=== PATIENT | male | born 1955 | race Caucasian/White ===

== ENCOUNTER 2016-09-10 19:44 | Emergency (ER) | payer OTHER, MEDICAID ==
[~2016-09-10] VITALS: Ht 175.3 cm; Wt 90.7 kg
[2016-09-10 21:08] LABS: Basophils # (auto) 0.1 uL; Basophils % (auto) 0.5 % (0.0-2.0); CONDITION Y; DEFINITIVE SEE PRINTOUT; Eosinophils # (auto) 0 uL; Eosinophils % (auto) 0.1 % (0.0-7.0); Hematocrit 38.4 % (41.0-53.0); Hemoglobin 12.5 g/dL (13.5-17.5); Lymphocytes # (auto) 1.3 uL; Lymphocytes % (auto) 13.2 % (10.0-50.0); Mean Corpuscular Hemoglobin 25.6 pg (28.0-32.0); Mean Corpuscular Hgb Conc. 32.5 g/dL (32.0-36.0); Mean Corpuscular Volume 78.8 fL (80.0-100.0); Mean Platelet Volume 7.5 fL (7.4-10.4); Monocytes # (auto) 1.1 uL; Monocytes % (auto) 10.8 % (0.0-12.0); Neutrophils # (auto) 7.5 uL; Neutrophils % (auto) 75.4 % (37.0-80.0); Platelet Count (auto) 387 10^3/uL (140-450)
[2016-09-10] MEDS ORDERED: LORazepam 2MG/ML-1ML VIAL ONE (21:10)
[2016-09-10] MEDS ORDERED: LORazepam 2MG/ML-1ML VIAL IV ONE (21:15)
[2016-09-10 21:25] LABS: INR 1.06 (0.9-1.15); Partial Thromboplastin Time 25.4 sec (22.64-33.71); Prothrombin Time 11.6 sec (9.37-12.3)
[2016-09-10 21:26] LABS: Red Cell Distribution Width 21.3 % (11.6-16.0)
[2016-09-10 21:53] LABS: Platelet Estimate Adequate; Stomatocytes Few
[2016-09-10 21:54] LABS: Anisocytosis Slight; Hypochromia Slight; Ovalocytes FEW; Platelet Clumps FEW; Tear Drop Cells FEW
[2016-09-10 22:24] LABS: Albumin 3.7 g/dL (3.4-5.0); Alkaline Phosphatase 92 U/L (45-117); Anion Gap 12 (5-15); Aspartate Aminotransferase 58 U/L (15-37); BUN/Creatinine Ratio 14.1; Bilirubin, Total 0.9 mg/dL (0.2-1.0); Blood Urea Nitrogen 12 mg/dL (7-18); Calcium 8.9 mg/dL (8.5-10.1); Carbon Dioxide 23 mmol/L (21-32); Chloride 107 mmol/L (98-107); GFR African American 118 mL/min; GFR Non-African American 98 mL/min; Glucose 110 mg/dL (74-106); Magnesium 2.2 mg/dL (1.6-2.6); Potassium 3.5 mmol/L (3.5-5.1); Sodium 142 mmol/L (136-145); Total Protein 7.7 g/dL (6.4-8.2)
[2016-09-10 22:36] LABS: REFLEX LACTIC ACID YES OR NO YES
[2016-09-11 05:51] VITALS: BP 154/96
[2016-09-11 06:37] LABS: Urine RBC None Seen /hpf (0 - 3)
[2016-09-11 06:52] LABS: Urine Blood Negative /uL (Negative); Urine Color Yellow (Yellow); Urine Glucose Normal (Normal); Urine Ketone TRACE (Negative); Urine Mucus MANY (None Seen); Urine Nitrite Negative (Negative); Urine pH 5.5 (5.0-8.0)
[2016-09-11 07:25] LABS: Urine Bilirubin Negative (Negative)
== END 2016-09-11 14:18 | disposition home or self-care (01) ==
LOC: ER 19:54
DX: R45.1 Restlessness and agitation (principal); R41.0 Disorientation, unspecified; R20.0 Anesthesia of skin
CPT/HCPCS: 36415; 70450; 71010; 80053; 80307; 80320; 81001; 83605; 83735; 84484; 85025; 85379; 85610; 85730; 87040; 96374; 99285; J2060

== ENCOUNTER 2017-03-08 00:30 | Inpatient (IN) | payer OTHER, MEDICAID ==
[2017-03-08] VITALS (10 sets, daily range): BP systolic 113–133; BP diastolic 59–78
[~2017-03-08] VITALS: Ht 170.2 cm; Wt 78.0 kg
[2017-03-08 06:04] LABS: Basophils # (auto) 0 uL; Eosinophils # (auto) 0.1 uL; White Blood Cell 9.9 10^3/uL (4.4-10.8)
[2017-03-08 06:07] LABS: Basophils % (auto) 0.5 % (0.0-2.0); Eosinophils % (auto) 0.9 % (0.0-7.0); Hematocrit 18.7 % (41.0-53.0); Lymphocytes # (auto) 1.5 uL; Lymphocytes % (auto) 14.7 % (10.0-50.0); Mean Corpuscular Hemoglobin 19.3 pg (28.0-32.0); Mean Corpuscular Hgb Conc. 29.8 g/dL (32.0-36.0); Mean Corpuscular Volume 64.6 fL (80.0-100.0); Monocytes # (auto) 0.9 uL; Monocytes % (auto) 9.3 % (0.0-12.0); Neutrophils # (auto) 7.4 uL; Neutrophils % (auto) 74.6 % (37.0-80.0); Nucleated Red Blood Cells % 0.1 %; Platelet Count (auto) 549 10^3/uL (140-450)
[2017-03-08 06:16] LABS: Red Cell Distribution Width 20.7 % (11.8-14.3)
[2017-03-08 06:17] LABS: Hemoglobin 5.6 g/dL (13.5-17.5)
[2017-03-08 06:24] LABS: INR 1.02 (0.9-1.15); Partial Thromboplastin Time 26.5 sec (22.64-33.71); Prothrombin Time 11.1 sec (9.37-12.3)
[2017-03-08 06:26] LABS: Alanine Aminotransferase 17 U/L (16-61); Albumin 2.5 g/dL (3.4-5.0); Anion Gap 9 (5-15); Aspartate Aminotransferase 14 U/L (15-37); BUN/Creatinine Ratio 20.7; Blood Urea Nitrogen 12 mg/dL (7-18); Calcium 7.9 mg/dL (8.5-10.1); Carbon Dioxide 27 mmol/L (21-32); Chloride 100 mmol/L (98-107); GFR African American 183 mL/min; GFR Non-African American 151 mL/min; Glucose 88 mg/dL (74-106); Potassium 3.4 mmol/L (3.5-5.1); Sodium 136 mmol/L (136-145)
[2017-03-08 06:30] LABS: Alkaline Phosphatase 81 U/L (45-117); Bilirubin, Total 0.3 mg/dL (0.2-1.0); Total Protein 7.2 g/dL (6.4-8.2)
[2017-03-08] MEDS ORDERED: IOHEXOL 300 MG/ML 100ML BOTTLE IJ ONE (09:03)
[2017-03-08] MEDS ORDERED: MORPHINE SULF INJ 2 MG/ML SYRINGE 1ML IV PRN ×2 (09:15)
[2017-03-08] MEDS ORDERED: LORazepam 0.5 MG TAB PO PRN (09:15)
[2017-03-08] MEDS ORDERED: OSELTAMIVIR 75 MG CAP PO ONE (09:15)
[2017-03-08] MEDS ORDERED: ACETAMINOPHEN 500 MG TAB PO PRN (09:15)
[2017-03-08] MEDS ORDERED: HYDROcodone-ACET 5/325MG TAB PO PRN (09:15)
[2017-03-08] MEDS ORDERED: TEMAZEPAM 15 MG CAP PO PRN (09:15)
[2017-03-08] MEDS ORDERED: ALBUTEROL SULF 2.5 MG/0.5ML(0.5%) NEB SOLN NEB PRN (09:15)
[2017-03-08] MEDS ORDERED: PROMETHAZINE HCL 25 MG/ML 1ML IV PRN (09:15)
[2017-03-08] MEDS ORDERED: NITROGLYCERIN 0.4 MG SL TAB SL PRN (09:15)
[2017-03-08] MEDS ORDERED: PANTOPRAZOLE 40 MG/10 ML VIAL IV ONE (09:15)
[2017-03-08] MEDS ORDERED: LACTULOSE 20Gm/30ML SOLN PO PRN (09:15)
[2017-03-08] MEDS ORDERED: IOHEXOL 350 MG/ML 100ML IJ ONE (09:18)
[2017-03-08] MEDS: PANTOPRAZOLE 40 MG TAB PO SCH ×2 (10:20→22:00)
[2017-03-08] MEDS: AZITHROMYCIN 500MG/ 250ML 250 ML IV SCH (10:35)
[2017-03-08] MEDS: SODIUM CHLORIDE 0.9% 1,000 ML IV SCH ×2 (12:47→18:30)
[2017-03-08 14:28] LABS: Hematocrit 16.4 % (41.0-53.0)
[2017-03-08] MEDS: IPRATROPIUM BROM 0.5 MG/2.5ML INH SOL NEB SCH (19:52)
[2017-03-08] MEDS: ALBUTEROL SULF 2.5 MG/0.5ML(0.5%) NEB SOLN NEB SCH (19:52)
[2017-03-08] MEDS: OSELTAMIVIR 75 MG CAP PO SCH (22:00)
[2017-03-08 22:46] LABS: Hematocrit 21.1 % (41.0-53.0)
[2017-03-08 23:15] LABS: Hemoglobin 6.6 g/dL (13.5-17.5)
[2017-03-09] VITALS (8 sets, daily range): BP systolic 113–132; BP diastolic 65–78
[2017-03-09] MEDS: SODIUM CHLORIDE 0.9% 1,000 ML IV SCH ×3 (02:54→18:43)
[2017-03-09 05:25] LABS: Eosinophils # (auto) 0.1 uL; Eosinophils % (auto) 0.8 % (0.0-7.0); Lymphocytes # (auto) 1.9 uL; Monocytes # (auto) 0.9 uL; Monocytes % (auto) 12.5 % (0.0-12.0); Red Blood Cells 3.47 10^6/uL (4.5-5.90)
[2017-03-09 05:29] LABS: Basophils # (auto) 0 uL; Basophils % (auto) 0.5 % (0.0-2.0); Hematocrit 23.9 % (41.0-53.0); Hemoglobin 7.8 g/dL (13.5-17.5); Lymphocytes % (auto) 27.3 % (10.0-50.0); Mean Corpuscular Hemoglobin 22.4 pg (28.0-32.0); Mean Corpuscular Hgb Conc. 32.5 g/dL (32.0-36.0); Neutrophils # (auto) 4.1 uL; Neutrophils % (auto) 58.9 % (37.0-80.0); Nucleated Red Blood Cells % 0.2 %; Platelet Count (auto) 447 10^3/uL (140-450)
[2017-03-09 05:59] LABS: Albumin 2.1 g/dL (3.4-5.0); BUN/Creatinine Ratio 18.3; Bilirubin, Total 0.7 mg/dL (0.2-1.0); Calcium 7.9 mg/dL (8.5-10.1); Potassium 3.9 mmol/L (3.5-5.1); Total Protein 6.2 g/dL (6.4-8.2)
[2017-03-09 06:00] LABS: Red Cell Distribution Width 23.7 % (11.8-14.3)
[2017-03-09] MEDS: IPRATROPIUM BROM 0.5 MG/2.5ML INH SOL NEB SCH ×3 (06:27→18:00)
[2017-03-09] MEDS: ALBUTEROL SULF 2.5 MG/0.5ML(0.5%) NEB SOLN NEB SCH ×3 (06:27→18:00)
[2017-03-09] MEDS: cefTRIAXone 1GM/10ml IVPUSH 10 ML IV SCH (09:19)
[2017-03-09] MEDS: OSELTAMIVIR 75 MG CAP PO SCH ×2 (09:35→22:00)
[2017-03-09] MEDS: PANTOPRAZOLE 40 MG TAB PO SCH ×2 (10:23→22:00)
[2017-03-09] MEDS: AZITHROMYCIN 500MG/ 250ML 250 ML IV SCH (10:23)
[2017-03-09] MEDS ORDERED: PNEUMOCOCCAL VACC POLYS 25 MCG/0.5 ML VIAL IM ONE (22:00)
[2017-03-09] MEDS ORDERED: INFLUENZA QUAD 2017-2018 0.5 ML SYRG IM ONE (22:00)
[2017-03-10] MEDS: ALBUTEROL SULF 2.5 MG/0.5ML(0.5%) NEB SOLN NEB SCH ×4 (00:08→18:27)
[2017-03-10] MEDS: IPRATROPIUM BROM 0.5 MG/2.5ML INH SOL NEB SCH ×4 (00:09→18:27)
[2017-03-10] MEDS: SODIUM CHLORIDE 0.9% 1,000 ML IV SCH ×3 (02:30→18:04)
[2017-03-10 05:00] VITALS: BP 121/71
[2017-03-10 05:45] LABS: Basophils # (auto) 0 uL; Basophils % (auto) 0.5 % (0.0-2.0); Eosinophils # (auto) 0.2 uL; Lymphocytes # (auto) 1.8 uL; Monocytes # (auto) 0.7 uL; Nucleated Red Blood Cells % 0.1 %
[2017-03-10 05:47] LABS: Eosinophils % (auto) 2.5 % (0.0-7.0); Hematocrit 25.5 % (41.0-53.0); Lymphocytes % (auto) 21.1 % (10.0-50.0); Mean Corpuscular Hemoglobin 22.1 pg (28.0-32.0); Mean Corpuscular Hgb Conc. 31.3 g/dL (32.0-36.0); Mean Corpuscular Volume 70.4 fL (80.0-100.0); Monocytes % (auto) 8.3 % (0.0-12.0); Neutrophils # (auto) 5.8 uL; Neutrophils % (auto) 67.6 % (37.0-80.0); Platelet Count (auto) 510 10^3/uL (140-450); Red Blood Cells 3.63 10^6/uL (4.5-5.90); White Blood Cell 8.5 10^3/uL (4.4-10.8)
[2017-03-10 06:01] LABS: Red Cell Distribution Width 24.2 % (11.8-14.3)
[2017-03-10 08:40] VITALS: BP 133/76
[2017-03-10] MEDS: cefTRIAXone 1GM/10ml IVPUSH 10 ML IV SCH (10:02)
[2017-03-10] MEDS: OSELTAMIVIR 75 MG CAP PO SCH ×2 (10:03→22:11)
[2017-03-10] MEDS: AZITHROMYCIN 500MG/ 250ML 250 ML IV SCH (10:03)
[2017-03-10] MEDS: PANTOPRAZOLE 40 MG TAB PO SCH ×2 (10:03→22:11)
[2017-03-10 17:06] VITALS: BP 128/73
[2017-03-10 22:00] VITALS: BP 118/70
[2017-03-11] MEDS: IPRATROPIUM BROM 0.5 MG/2.5ML INH SOL NEB SCH ×4 (00:15→18:34)
[2017-03-11] MEDS: ALBUTEROL SULF 2.5 MG/0.5ML(0.5%) NEB SOLN NEB SCH ×4 (00:15→18:34)
[2017-03-11] MEDS: SODIUM CHLORIDE 0.9% 1,000 ML IV SCH ×3 (02:30→17:32)
[2017-03-11 05:00] VITALS: BP 127/77
[2017-03-11 09:00] VITALS: BP 139/82
[2017-03-11] MEDS: OSELTAMIVIR 75 MG CAP PO SCH ×2 (10:00→22:00)
[2017-03-11] MEDS: cefTRIAXone 1GM/10ml IVPUSH 10 ML IV SCH (10:25)
[2017-03-11] MEDS: PANTOPRAZOLE 40 MG TAB PO SCH ×2 (10:25→22:36)
[2017-03-11] MEDS: AZITHROMYCIN 500MG/ 250ML 250 ML IV SCH (10:25)
[2017-03-11 13:00] VITALS: BP 130/79
[2017-03-11] MEDS ORDERED: NALOXONE HCL 0.4 MG/ML VIAL ONE (14:12)
[2017-03-11] MEDS ORDERED: LIDOCAINE VISCOUS 2% 15ML UD ONE (14:12)
[2017-03-11] MEDS ORDERED: FLUMAZENIL 0.1 MG/ML INJ 10ML MDV IV ONE (14:12)
[2017-03-11] MEDS: MIDAZOLAM HCL 5 MG/ML-1ML VIAL ONE ×2 (14:33→14:34)
[2017-03-11] MEDS: fentaNYL CITRATE 100 MCG/2 ML VL ONE ×2 (14:33→14:34)
[2017-03-11 16:54] VITALS: BP 121/72
[2017-03-11] MEDS: SUCRALFATE 1 GM/10 ML ORAL SUSP PO SCH ×2 (17:31→22:36)
[2017-03-11 21:29] VITALS: BP 124/70
[2017-03-11 21:40] VITALS: BP 124/70
[2017-03-12] MEDS: ALBUTEROL SULF 2.5 MG/0.5ML(0.5%) NEB SOLN NEB SCH ×2 (00:42→11:42)
[2017-03-12] MEDS: IPRATROPIUM BROM 0.5 MG/2.5ML INH SOL NEB SCH ×2 (00:42→11:42)
[2017-03-12] MEDS: SODIUM CHLORIDE 0.9% 1,000 ML IV SCH ×2 (02:30→09:29)
[2017-03-12 05:20] VITALS: BP 124/77
[2017-03-12] MEDS: SUCRALFATE 1 GM/10 ML ORAL SUSP PO SCH ×2 (06:49→11:15)
[2017-03-12 09:00] VITALS: BP 121/71
[2017-03-12] MEDS: PANTOPRAZOLE 40 MG TAB PO SCH (09:28)
[2017-03-12] MEDS: cefTRIAXone 1GM/10ml IVPUSH 10 ML IV SCH (09:28)
[2017-03-12] MEDS: OSELTAMIVIR 75 MG CAP PO SCH (09:29)
[2017-03-12] MEDS ORDERED: AZITHROMYCIN 250 MG TAB PO SCH (10:00)
[2017-03-12 13:00] VITALS: BP 131/80
== END 2017-03-12 14:35 | disposition home or self-care (01) | DRG 380 ==
LOC: ER 00:33 → DOU 00:34 → TELE 15:31 → TELE-WESTW 03-09 15:52
PROVIDERS: ADMIT Internal Medicine; ATTEND Internal Medicine
PROC: 30233N1 Transfusion of Nonautologous Red Blood Cells into Peripheral Vein, Percutaneous Approach (ICD-10-PCS; 2017-03-08)
PROC: 0DB68ZX Excision of Stomach, Via Natural or Artificial Opening Endoscopic, Diagnostic (ICD-10-PCS; 2017-03-11)
PROC: 0DB38ZX Excision of Lower Esophagus, Via Natural or Artificial Opening Endoscopic, Diagnostic (ICD-10-PCS; 2017-03-11)
PROC: 0DB98ZX Excision of Duodenum, Via Natural or Artificial Opening Endoscopic, Diagnostic (ICD-10-PCS; principal; 2017-03-11 14:00)
DX: K22.11 Ulcer of esophagus with bleeding (principal); J18.9 Pneumonia, unspecified organism; D64.9 Anemia, unspecified; E87.6 Hypokalemia; K44.9 Diaphragmatic hernia without obstruction or gangrene; R79.89 Other specified abnormal findings of blood chemistry; K29.70 Gastritis, unspecified, without bleeding; K29.80 Duodenitis without bleeding; Z80.9 Family history of malignant neoplasm, unspecified; Z87.19 Personal history of other diseases of the digestive system; Z87.01 Personal history of pneumonia (recurrent); Z59.0 Homelessness; Z23 Encounter for immunization
CPT/HCPCS: 36415; 36430; 43239; 71010; 71275; 80053; 80061; 82270; 83615; 83735; 83880; 84443; 84484; 85014; 85018; 85025; 85045; 85379; 85610; 85652; 85730; 86850; 86880; 86900; 86901; 86920; 87040; 87278; 93005; 94640; 96374; C9113; J2250